=== PATIENT | female | born 1950 | race Caucasian/White ===

== ENCOUNTER 2021-06-22 00:22 | Day surgery (SDCO) | payer OTHER ==
[~2021-06-22] VITALS: Ht 154.9 cm; Wt 65.8 kg
[2021-06-22 00:49] LABS: BASOPHIL 0.2 % (0-2); EOSINOPHIL 1.7 % (0-7); HCT 36.6 % (37.0-47.0); HGB 12.6 g/dl (12.5-16.0); LYMPHOCYTE 6.6 % (15-48); MCHC 34.4 g/dL (32.0-36.0); MCV 90.1 fL (78.0-100.0); MONOCYTE 4.6 % (0-12); MPV 9.4 fL (6.0-9.5); NEUTROPHIL 86.5 % (41-80); NRBC 0; PLT 341 K/uL (150-400); RBC 4.06 M/uL (4.20-5.40); RDW 12.2 % (11.5-14.0); WBC 10.5 K/uL (4.0-10.5)
[2021-06-22 01:11] LABS: ALBUMIN 3.9 g/dL (3.4-5.0); BILIRUBIN - TOTAL 0.3 mg/dL (0.2-1.0); BUN/CREAT RATIO (CALC) 14.1 RATIO; CREATININE 0.78 mg/dL (0.51-0.95); GLOBULIN (CALCULATION) 3.5 g/dL; TOTAL PROTEIN 7.4 g/dL (6.4-8.2)
[2021-06-22 01:17] LABS: LACTIC ACID 3.6 mmol/L (0.4-1.9)
[2021-06-22 01:47] LABS: BILIRUBIN NEGATIVE (NEGATIVE); BLOOD NEGATIVE Ery/uL (NEGATIVE); CLARITY CLEAR (CLEAR); COLOR YELLOW (YELLOW); GLUCOSE (U) 3+ mg/dL (NORMAL); LEUKOCYTES TRACE Leu/uL (NEGATIVE); NITRITE NEGATIVE (NEGATIVE); PROTEIN NEGATIVE (NEGATIVE); SPECIFIC GRAVITY 1.015 (1.001-1.030); UROBILINOGEN 0.2 mg/dL (0.2-1.0)
[2021-06-22 01:52] LABS: BACTERIA TRACE; SQUAMOUS EPITHELIAL CELLS RARE; URINARY RBC RARE
[2021-06-22 01:53] LABS: AMORPHOUS URATES CRYSTALS TRACE
[2021-06-22] MEDS ORDERED: METFORMIN HCL1000 MG PO (04:33)
[2021-06-22] MEDS ORDERED: ACID REDUCER20 M1 PO (04:34)
[2021-06-22] MEDS ORDERED: PRINIVIL10 MG PO (04:34)
[2021-06-22] MEDS ORDERED: CYCLOBENZAPRINE5 MG PO (04:35)
[2021-06-22] MEDS ORDERED: MACROBID100 MG PO (04:36)
[2021-06-22] MEDS ORDERED: FENOFIBRATE160 MG PO (04:37)
[2021-06-22] MEDS ORDERED: TOPROL XL 25MG25 MG PO (04:37)
[2021-06-22] MEDS ORDERED: DIAZEPAM 5MG TAB5 MG PO (04:38)
[2021-06-22] MEDS ORDERED: ZOCOR5 MG PO (04:39)
[2021-06-22 07:08] LABS: ALBUMIN 3.4 g/dL (3.4-5.0); BILIRUBIN - TOTAL 0.4 mg/dL (0.2-1.0); BUN/CREAT RATIO (CALC) 14.5 RATIO; CREATININE 0.62 mg/dL (0.51-0.95); GLOBULIN (CALCULATION) 2.9 g/dL; POTASSIUM 3.7 mmol/L (3.5-5.1); TOTAL PROTEIN 6.3 g/dL (6.4-8.2)
[2021-06-22] MEDS ORDERED: SPECTRACEF400 MG PO (16:14)
[2021-06-22] MEDS ORDERED: PYRIDIUM200 MG PO (16:15)
== END 2021-06-22 16:50 | disposition home or self-care (01) ==
LOC: FER 00:22 → FMS 02:12
PROVIDERS: Emergency Medicine; Nurse Practitioner; ADMIT Internal Medicine
DX: A41.9 Sepsis, unspecified organism (principal); N39.0 Urinary tract infection, site not specified; E11.9 Type 2 diabetes mellitus without complications; I10 Essential (primary) hypertension; M19.90 Unspecified osteoarthritis, unspecified site; E78.5 Hyperlipidemia, unspecified; F41.9 Anxiety disorder, unspecified; M54.2 Cervicalgia; G89.29 Other chronic pain; Z88.5 Allergy status to narcotic agent; Z91.013 Allergy to seafood; Z88.8 Allergy status to other drugs, medicaments and biological substances; Z79.84 Long term (current) use of oral hypoglycemic drugs; Z79.899 Other long term (current) drug therapy; Z20.822 Contact with and (suspected) exposure to COVID-19
CPT/HCPCS: 36415; 71045; 80053; 81001; 83605; 85025; 87040; 87088; G0378; J2543; J7030; U0002